=== PATIENT | male | born 1955 | race Asian ===

== ENCOUNTER 2020-10-29 10:19 | Emergency (ER) | payer OTHER ==
[~2020-10-29] VITALS: Ht 167.6 cm; Wt 70.0 kg
[2020-10-29] MEDS ORDERED: AMLO-257 PO (10:36)
[2020-10-29] MEDS ORDERED: NEBI5TAB2 PO (10:36)
[2020-10-29] MEDS ORDERED: HYDR-1475 PO (10:36)
[2020-10-29 10:37] VITALS: BP 180/95
== END 2020-10-29 11:31 | disposition home or self-care (01) ==
LOC: EMS 10:21
DX: Z20.822 Contact with and (suspected) exposure to COVID-19 (principal); I25.10 Atherosclerotic heart disease of native coronary artery without angina pectoris; I10 Essential (primary) hypertension
CPT/HCPCS: 99283; U0003

== ENCOUNTER 2022-10-28 19:06 | Emergency (ER) | payer MEDICARE, OTHER ==
[~2022-10-28] VITALS: Ht 175.3 cm; Wt 75.0 kg
[~2022-10-28 19:06] MED LIST: AMLO-257 PO; HYDR25TA2 PO; NEBI5TAB2 PO
[2022-10-28] MEDS ORDERED: METO25 PO (19:17)
[2022-10-28] MEDS ORDERED: METF-1211 PO (19:17)
[2022-10-28 19:24] LABS: COVID AG,FIA SOURCE NASOPHARYNGEAL
[2022-10-28] MEDS ORDERED: ACETAMINOPHEN 500 MG TABLET PO ONE (19:30)
[2022-10-28] MEDS ORDERED: METO-408 PO (19:31)
[2022-10-28] MEDS ORDERED: ATOR10TA69 PO (19:31)
[2022-10-28] MEDS ORDERED: AMLO10TA55 PO (19:31)
[2022-10-28 19:43] LABS: INFLUENZA TYPE A NEGATIVE FOR TYPE A (NEGATIVE); INFLUENZA TYPE B NEGATIVE FOR TYPE B (NEGATIVE)
[2022-10-28 20:29] VITALS: BP 137/86
== END 2022-10-28 21:14 | disposition home or self-care (01) ==
LOC: EMS 19:06
DX: U07.1 COVID-19 (principal); I10 Essential (primary) hypertension
CPT/HCPCS: 99284; 71045; 87426; 87804; C9803